=== PATIENT | female | born 1950 | race Caucasian/White ===

== ENCOUNTER 2016-04-30 06:04 | Day surgery (SDC) | payer OTHER, BC ==
[2016-04-30 06:50] VITALS: BMI 33.0
--- NOTE | 2016-04-30 07:18 | HP ---
Admitting History and Physical - Admission History of Present Illness: patient is a 65 y/o female with a past medical history of depression and anxiety , COPD, hypertension, NIDDM, and hyperlipidemia. patient presents for ECT. Patient is poor historian due to anxiety. She has received ECT in the past, her last ECT was 2014 at [facility]. Patient reports a recent hospitalization for pneumonia in early march 2016. She reports finishing a full course of antibiotics and is unable to recall the name. she reports feeling well, and denies any suicidal or homicidal ideation or auditory or visual or auditory hallucination History Source: Patient Limitations to Obtaining History: No Limitations - Past Medical History Cardiovascular: Yes: HTN, Hyperlipdemia Pulmonary: Yes: COPD Psych: Yes: Anxiety, Depression Endocrine: Yes: Diabetes Mellitus - Smoking History Smoking history: Former smoker Have you smoked in the past 12 months: No If you are a former smoker, when did you quit?: 2009 - Alcohol/Substance Use Hx Alcohol Use: No Home Medications - Allergies Allergies/Adverse Reactions: Allergies Allergy/AdvReac Type Severity Reaction Status Date / Time No Known Drug Allergies Allergy Verified 04/30/16 06:56 - Home Medications Home Medications: Ambulatory Orders Alprazolam [Xanax] 0.5 mg PO BID PRN 01/18/15 Aspirin Coated [Ecotrin -] 81 mg PO DAILY 01/18/15 Cholecalciferol (Vitamin D3) [Vitamin D3] 1,000 unit PO DAILY 01/18/15 Fluticasone/Salmeterol [Advair 250-50 Diskus] 1 each IH BID 01/18/15 Lisinopril [Prinivil -] 30 mg PO DAILY 01/18/15 Simvastatin 10 mg PO HS 01/18/15 Venlafaxine HCl ER [Effexor Xr -] 300 mg PO DAILY 01/18/15 Ascorbate Calcium [Vitamin C] 500 mg PO DAILY 04/23/16 Asenapine Maleate [Saphris] 5 mg SL HS 04/23/16 Brexpiprazole [Rexulti] 5 mg PO DAILY 04/23/16 Bupropion HCl [Wellbutrin Xl] 300 mg PO DAILY 04/23/16 Metformin HCl 1,000 mg PO HS 04/23/16 Metformin HCl 500 mg PO DAILY 04/23/16 Tiotropium [place] [Spiriva] 1 inh PO DAILY 04/23/16 Family Disease History - Family Disease History Family History: Unremarkable Review of Systems - Review of Systems Constitutional: reports: No Symptoms Eyes: reports: No Symptoms HENT: reports: No Symptoms Neck: reports: No Symptoms Cardiovascular: reports: No Symptoms Respiratory: reports: No Symptoms Gastrointestinal: reports: No Symptoms Musculoskeletal: reports: No Symptoms Integumentary: reports: No Symptoms Neurological: reports: No Symptoms Hematology/Lymphatic: reports: No Symptoms Psychiatric: reports: Anxiety, Depression Physical Examination Vital Signs: Vital Signs Temperature 97.6 F 04/30/16 06:43 Pulse Rate 78 04/30/16 06:43 Respiratory Rate 22 04/30/16 06:43 Blood Pressure 136/77 04/30/16 06:43 O2 Sat by Pulse Oximetry (%) 96 04/30/16 06:43 Constitutional: Yes: Well Nourished, No Distress, Calm Eyes: Yes: WNL, Conjunctiva Clear, EOM Intact HENT: Yes: WNL, Atraumatic, Normocephalic Neck: Yes: WNL, Supple, Trachea Midline Cardiovascular: Yes: WNL, Regular Rate and Rhythm, S1, S2 Respiratory: Yes: WNL, Regular, CTA Bilaterally Gastrointestinal: Yes: WNL, Normal Bowel Sounds, Soft ...Rectal Exam: Yes: Deferred Renal/: Yes: WNL Extremities: Yes: WNL Edema: No Peripheral Pulses WNL: Yes Peripheral Pulses: Left Radial: 4+, Right Radial: 4+, Left Doralis Pedis: 3+, Right Dorsalis Pedis: 3+, Left Femoral: 3+ Integumentary: Yes: WNL Neurological: Yes: WNL, Alert, Oriented ...Motor Strength: WNL Psychiatric: Yes: WNL, Alert, Oriented, Other (anxious) Labs: reviewed 03/30 Imaging - Results EKG: Image Reviewed, Other (NSR) Assessment/Plan pt is a 65 y/o female that presents for ECT, labs and EKG reviewed pt is low risk for ECT informed consent, risks and benefits to be obtained by Dr Barahona
[2016-04-30] MEDS ORDERED: PROPOFOL 20 ML ONE (07:20)
[2016-04-30] MEDS ORDERED: SUCCINYLCHOLINE CHLORIDE 200 MG/10 ML VIAL ONE (07:20)
[2016-04-30] MEDS ORDERED: KETAMINE HCL 500 MG/10 ML VIAL ONE (08:04)
[2016-04-30 09:10] VITALS: TEMP 98.2
--- NOTE | 2016-04-30 09:10 | EKG ---
Test Reason : Blood Pressure : / mmHG Vent. Rate : 076 BPM Atrial Rate : 076 BPM P-R Int : 136 ms QRS Dur : 088 ms QT Int : 374 ms P-R-T Axes : -22 012 042 degrees QTc Int : 420 ms NORMAL SINUS RHYTHM NORMAL ECG NO PREVIOUS ECGS AVAILABLE Confirmed by DANIELA APPLE MD ([id number]) on 04/30/2016 9:09:49 AM Referred By: Addison Barahona Confirmed By:DANIELA APPLE MD
[2016-04-30] MEDS ORDERED: ACETAMINOPHEN 325 MG TABLET (FP) PO PRN (09:18)
[2016-04-30 10:14] VITALS: BP 142/72; PULSE 88
== END 2016-04-30 10:16 | disposition home or self-care (01) ==
LOC: FECT 06:04
PROVIDERS: ATTEND Psychiatry & Neurology Psychiatry
PROC: GZB4ZZZ Other Electroconvulsive Therapy (ICD-10-PCS; principal; 2016-04-30 08:00)
DX: F33.2 Major depressive disorder, recurrent severe without psychotic features (principal)
CPT/HCPCS: 90870; 93005; 94760

== ENCOUNTER 2016-05-02 05:11 | Day surgery (SDC) | payer OTHER, BC ==
[2016-04-26 08:40] VITALS: BMI 31.4
[2016-05-02] MEDS ORDERED: KETAMINE HCL 500 MG/10 ML VIAL ONE (07:48)
[2016-05-02] MEDS ORDERED: LACTATED RINGERS SOLUTION 1,000 ML IV SCH (08:45)
[2016-05-02 08:57] VITALS: TEMP 98.4
[2016-05-02 09:14] VITALS: BP 145/85; PULSE 87
== END 2016-05-02 09:10 | disposition home or self-care (01) ==
LOC: FECT 05:11
PROVIDERS: ATTEND Psychiatry & Neurology Psychiatry
PROC: GZB4ZZZ Other Electroconvulsive Therapy (ICD-10-PCS; principal; 2016-05-02 08:00)
DX: F33.2 Major depressive disorder, recurrent severe without psychotic features (principal)
CPT/HCPCS: 90870; 94760

== ENCOUNTER 2016-05-04 05:42 | Day surgery (SDC) | payer OTHER, BC ==
[2016-04-30 17:52] VITALS: BMI 33.0
[2016-05-04] MEDS ORDERED: KETAMINE HCL 500 MG/10 ML VIAL ONE (07:49)
[2016-05-04 12:11] VITALS: BP 152/74; PULSE 76; TEMP 98
[2016-05-04] MEDS ORDERED: ONDANSETRON 4 MG/2 ML VIAL IVPUSH PRN (13:08)
[2016-05-04] MEDS ORDERED: LACTATED RINGERS SOLUTION 1,000 ML IV SCH (13:15)
== END 2016-05-04 10:15 | disposition home or self-care (01) ==
LOC: FECT 05:42
PROVIDERS: ATTEND Psychiatry & Neurology Psychiatry
PROC: GZB4ZZZ Other Electroconvulsive Therapy (ICD-10-PCS; principal; 2016-05-04 07:30)
DX: F33.2 Major depressive disorder, recurrent severe without psychotic features (principal)
CPT/HCPCS: 90870; 94760

== ENCOUNTER 2016-05-07 05:37 | Day surgery (SDC) | payer OTHER, BC ==
[2016-05-01 10:52] VITALS: BMI 33.0
[2016-05-07] MEDS ORDERED: KETAMINE HCL 500 MG/10 ML VIAL ONE (07:05)
[2016-05-07 08:17] VITALS: TEMP 98.2
[2016-05-07 08:54] VITALS: BP 141/72; PULSE 91
== END 2016-05-07 08:58 | disposition home or self-care (01) ==
LOC: FECT 05:37
PROVIDERS: ATTEND Psychiatry & Neurology Psychiatry
PROC: GZB4ZZZ Other Electroconvulsive Therapy (ICD-10-PCS; principal; 2016-05-07 07:30)
DX: F33.2 Major depressive disorder, recurrent severe without psychotic features (principal)
CPT/HCPCS: 90870; 94760

== ENCOUNTER 2016-05-09 05:36 | Day surgery (SDC) | payer OTHER, BC ==
[2016-05-07 08:27] VITALS: BMI 33.0
[2016-05-09] MEDS ORDERED: KETAMINE HCL 500 MG/10 ML VIAL ONE (07:03)
[2016-05-09] MEDS ORDERED: LACTATED RINGERS SOLUTION 1,000 ML IV SCH (08:00)
[2016-05-09 08:10] VITALS: BP 133/77; PULSE 78; TEMP 98.8
== END 2016-05-09 08:20 | disposition home or self-care (01) ==
LOC: FECT 05:36
PROVIDERS: ATTEND Psychiatry & Neurology Psychiatry
PROC: GZB4ZZZ Other Electroconvulsive Therapy (ICD-10-PCS; principal; 2016-05-09 07:15)
DX: F33.2 Major depressive disorder, recurrent severe without psychotic features (principal)
CPT/HCPCS: 90870; 94760

== ENCOUNTER 2016-05-11 05:39 | Day surgery (SDC) | payer OTHER, BC ==
[2016-05-08 11:05] VITALS: BMI 29.0
[2016-05-11] MEDS ORDERED: KETAMINE HCL 500 MG/10 ML VIAL ONE (07:15)
[2016-05-11 08:14] VITALS: TEMP 98.3
[2016-05-11 09:02] VITALS: BP 146/82; PULSE 92
== END 2016-05-11 08:45 | disposition home or self-care (01) ==
LOC: FECT 05:39
PROVIDERS: ATTEND Psychiatry & Neurology Psychiatry
PROC: GZB4ZZZ Other Electroconvulsive Therapy (ICD-10-PCS; principal; 2016-05-11 07:15)
DX: F33.2 Major depressive disorder, recurrent severe without psychotic features (principal)
CPT/HCPCS: 90870; 94760

== ENCOUNTER 2016-05-14 05:35 | Day surgery (SDC) | payer OTHER, BC ==
[2016-05-08 11:10] VITALS: BMI 29.0
[2016-05-14 06:13] VITALS: TEMP 98
[2016-05-14] MEDS ORDERED: KETAMINE HCL 500 MG/10 ML VIAL ONE (07:02)
[2016-05-14 08:23] VITALS: BP 126/62; PULSE 80
== END 2016-05-14 08:20 | disposition home or self-care (01) ==
LOC: FECT 05:35
PROVIDERS: ATTEND Psychiatry & Neurology Psychiatry
PROC: GZB4ZZZ Other Electroconvulsive Therapy (ICD-10-PCS; principal; 2016-05-14 07:00)
DX: F33.2 Major depressive disorder, recurrent severe without psychotic features (principal)
CPT/HCPCS: 90870; 94760

== ENCOUNTER 2016-05-16 05:38 | Day surgery (SDC) | payer OTHER, BC ==
[2016-05-08 11:13] VITALS: BMI 29.0
[2016-05-16] MEDS ORDERED: KETAMINE HCL 500 MG/10 ML VIAL ONE (07:01)
[2016-05-16] MEDS ORDERED: ONDANSETRON 4 MG/2 ML VIAL IVPUSH PRN (07:20)
[2016-05-16 07:57] VITALS: TEMP 98.2
[2016-05-16 08:49] VITALS: BP 148/72; PULSE 80
== END 2016-05-16 08:35 | disposition home or self-care (01) ==
LOC: FECT 05:38
PROVIDERS: ATTEND Psychiatry & Neurology Psychiatry
PROC: GZB4ZZZ Other Electroconvulsive Therapy (ICD-10-PCS; principal; 2016-05-16 07:00)
DX: F33.2 Major depressive disorder, recurrent severe without psychotic features (principal)
CPT/HCPCS: 90870; 94760

== ENCOUNTER 2016-05-18 05:36 | Day surgery (SDC) | payer OTHER, BC ==
[2016-05-08 11:17] VITALS: BMI 29.0
[2016-05-18 07:44] VITALS: TEMP 99.1
[2016-05-18] MEDS ORDERED: LACTATED RINGERS SOLUTION 1,000 ML IV SCH (08:45)
[2016-05-18 08:52] VITALS: BP 128/71; PULSE 76
[2016-05-18] MEDS ORDERED: ONDANSETRON 4 MG/2 ML VIAL IVPUSH PRN (09:05)
== END 2016-05-18 08:54 | disposition home or self-care (01) ==
LOC: FECT 05:36
PROVIDERS: ATTEND Psychiatry & Neurology Psychiatry
PROC: GZB4ZZZ Other Electroconvulsive Therapy (ICD-10-PCS; principal; 2016-05-18 07:00)
DX: F33.2 Major depressive disorder, recurrent severe without psychotic features (principal)
CPT/HCPCS: 90870; 94760

== ENCOUNTER 2016-05-21 05:36 | Day surgery (SDC) | payer OTHER, BC ==
[2016-05-16 11:24] VITALS: BMI 29.0
[2016-05-21] MEDS ORDERED: LACTATED RINGERS SOLUTION 1,000 ML IV SCH (07:30)
[2016-05-21 08:06] VITALS: TEMP 97.8
[2016-05-21 08:32] VITALS: BP 130/72; PULSE 71
== END 2016-05-21 08:30 | disposition home or self-care (01) ==
LOC: FECT 05:36
PROVIDERS: ATTEND Psychiatry & Neurology Psychiatry
PROC: GZB4ZZZ Other Electroconvulsive Therapy (ICD-10-PCS; principal; 2016-05-21 07:00)
DX: F33.2 Major depressive disorder, recurrent severe without psychotic features (principal)
CPT/HCPCS: 90870; 94760

== ENCOUNTER 2016-05-23 05:34 | Day surgery (SDC) | payer OTHER, BC ==
[2016-05-18 10:15] VITALS: BMI 29.0
[2016-05-23] MEDS ORDERED: KETAMINE HCL 500 MG/10 ML VIAL ONE (07:08)
[2016-05-23 09:01] VITALS: TEMP 97.9
[2016-05-23 09:10] VITALS: BP 130/56; PULSE 88
== END 2016-05-23 08:30 | disposition home or self-care (01) ==
LOC: FECT 05:34
PROVIDERS: ATTEND Psychiatry & Neurology Psychiatry
PROC: GZB4ZZZ Other Electroconvulsive Therapy (ICD-10-PCS; principal; 2016-05-23 07:00)
DX: F33.2 Major depressive disorder, recurrent severe without psychotic features (principal)
CPT/HCPCS: 90870; 94760

== ENCOUNTER 2016-05-28 05:39 | Day surgery (SDC) | payer OTHER, BC ==
[2016-05-21 12:02] VITALS: BMI 29.0
[2016-05-28] MEDS ORDERED: ONDANSETRON 4 MG/2 ML VIAL IVPUSH PRN (06:14)
[2016-05-28] MEDS ORDERED: KETAMINE HCL 500 MG/10 ML VIAL ONE (07:49)
[2016-05-28 09:15] VITALS: TEMP 98.2
[2016-05-28 10:26] VITALS: BP 122/58; PULSE 76
== END 2016-05-28 09:45 | disposition home or self-care (01) ==
LOC: FECT 05:39
PROVIDERS: ATTEND Psychiatry & Neurology Psychiatry
PROC: GZB4ZZZ Other Electroconvulsive Therapy (ICD-10-PCS; principal; 2016-05-28 07:00)
DX: F33.2 Major depressive disorder, recurrent severe without psychotic features (principal)
CPT/HCPCS: 90870; 94760

== ENCOUNTER 2016-06-05 05:40 | Day surgery (SDC) | payer OTHER, BC ==
[2016-05-28 17:02] VITALS: BMI 29.0
[2016-06-05 06:33] VITALS: TEMP 98.1
--- NOTE | 2016-06-05 06:57 | HP ---
Admitting History and Physical - Admission History of Present Illness: patient is a 65 y/o female, with a past medical history of COPD, NIDDM, hypertension, hyperlipidemiea, anxiety and depression. Patient presents for ECT , her last ECT was 05/28/16. She report feeling well and reports an improvement in depressive symptoms since starting ECT. She denies any suicidal or homicidal ideation. She reports her wellbutrin dose was lowered and she is was placed on abilify. She reports an improvement in depressive symptoms since the medication change. - Past Medical History Cardiovascular: Yes: HTN, Hyperlipdemia Pulmonary: Yes: COPD Psych: Yes: Anxiety, Depression Endocrine: Yes: Diabetes Mellitus - Smoking History Smoking history: Former smoker Have you smoked in the past 12 months: No If you are a former smoker, when did you quit?: 2009 - Alcohol/Substance Use Hx Alcohol Use: No History of Substance Use: reports: None - Social History Usual Living Arrangement: Yes: Alone History of Recent Travel: No Home Medications - Allergies Allergies/Adverse Reactions: Allergies Allergy/AdvReac Type Severity Reaction Status Date / Time No Known Drug Allergies Allergy Verified 05/23/16 06:23 - Home Medications Home Medications: Ambulatory Orders Aspirin Coated [Ecotrin -] 81 mg PO DAILY 01/18/15 Cholecalciferol (Vitamin D3) [Vitamin D3] 1,000 unit PO DAILY 01/18/15 Fluticasone/Salmeterol [Advair 250-50 Diskus] 1 each IH BID 01/18/15 Lisinopril [Prinivil -] 30 mg PO DAILY 01/18/15 Simvastatin 10 mg PO HS 01/18/15 Venlafaxine HCl ER [Effexor Xr -] 300 mg PO DAILY 01/18/15 Ascorbate Calcium [Vitamin C] 500 mg PO DAILY 04/23/16 Bupropion HCl [Wellbutrin Xl] 150 mg PO DAILY 04/23/16 Metformin HCl 1,000 mg PO HS 04/23/16 Metformin HCl 500 mg PO DAILY 04/23/16 Tiotropium [place] [Spiriva] 1 inh PO DAILY 04/23/16 Clonazepam [Klonopin] 1 mg PO BID 05/11/16 Aripiprazole [Abilify] 10 mg PO DAILY 06/05/16 Family Disease History - Family Disease History Family History: Unremarkable Review of Systems - Review of Systems Constitutional: reports: No Symptoms Eyes: reports: No Symptoms HENT: reports: No Symptoms Neck: reports: No Symptoms Cardiovascular: reports: No Symptoms Respiratory: reports: No Symptoms Gastrointestinal: reports: No Symptoms Genitourinary: reports: No Symptoms Musculoskeletal: reports: No Symptoms Integumentary: reports: No Symptoms Neurological: reports: No Symptoms Endocrine: reports: No Symptoms Hematology/Lymphatic: reports: No Symptoms Psychiatric: reports: No Symptoms Physical Examination Vital Signs: Vital Signs Temperature 98.1 F 06/05/16 06:29 Pulse Rate 74 06/05/16 06:29 Respiratory Rate 16 06/05/16 06:29 Blood Pressure 112/68 06/05/16 06:29 O2 Sat by Pulse Oximetry (%) 94 L 06/05/16 06:29 Constitutional: Yes: Well Nourished, No Distress, Calm Eyes: Yes: WNL, Conjunctiva Clear, EOM Intact HENT: Yes: WNL, Atraumatic, Normocephalic Neck: Yes: WNL, Supple, Trachea Midline Cardiovascular: Yes: WNL, Regular Rate and Rhythm, S1, S2 Respiratory: Yes: WNL, Regular, CTA Bilaterally Gastrointestinal: Yes: WNL, Normal Bowel Sounds, Soft Renal/: Yes: WNL Breast(s): Yes: WNL Musculoskeletal: Yes: WNL Extremities: Yes: WNL Edema: No Peripheral Pulses WNL: Yes Peripheral Pulses: Left Radial: 4+, Right Radial: 4+, Left Doralis Pedis: 3+, Right Dorsalis Pedis: 3+, Left Femoral: 3+, Right Femoral: 3+ Integumentary: Yes: WNL Neurological: Yes: WNL, Alert, Oriented ...Motor Strength: WNL Psychiatric: Yes: WNL, Alert, Oriented Labs: reviewed 03/30 Imaging - Results EKG: Image Reviewed, Other (nsr no ischemic changes) Assessment/Plan pt is a 65 y/o female that presents for ect, she has received ect in the past and denies any adverse reaction to anesthesia. patient's labs and ekg reviewed low risk for ect informed consent, risks/benefits to be obtained by Dr Barahona
[2016-06-05] MEDS ORDERED: KETAMINE HCL 500 MG/10 ML VIAL ONE (07:46)
[2016-06-05 09:11] VITALS: BP 125/66; PULSE 76
== END 2016-06-05 09:10 | disposition home or self-care (01) ==
LOC: FECT 05:40
PROVIDERS: ATTEND Psychiatry & Neurology Psychiatry
PROC: GZB4ZZZ Other Electroconvulsive Therapy (ICD-10-PCS; principal; 2016-06-05 07:45)
DX: F33.2 Major depressive disorder, recurrent severe without psychotic features (principal)
CPT/HCPCS: 90870; 94760

== ENCOUNTER 2016-06-12 05:45 | Day surgery (SDC) | payer OTHER, BC ==
[2016-06-05 10:28] VITALS: BMI 29.0
[2016-06-12] MEDS ORDERED: KETAMINE HCL 500 MG/10 ML VIAL ONE (07:09)
[2016-06-12 08:09] VITALS: TEMP 98.1
[2016-06-12 08:20] VITALS: BP 125/70; PULSE 79
[2016-06-12] MEDS ORDERED: LACTATED RINGERS SOLUTION 1,000 ML IV SCH (08:30)
[2016-06-12] MEDS ORDERED: ACETAMINOPHEN 325 MG TABLET (FP) ONE (08:40)
[2016-06-12] MEDS ORDERED: ONDANSETRON 4 MG/2 ML VIAL IVPUSH PRN (08:42)
[2016-06-12] MEDS ORDERED: ACETAMINOPHEN 325 MG TABLET (FP) PO ONE (10:31)
== END 2016-06-12 08:30 | disposition home or self-care (01) ==
LOC: FECT 05:45
PROVIDERS: ATTEND Psychiatry & Neurology Psychiatry
PROC: GZB4ZZZ Other Electroconvulsive Therapy (ICD-10-PCS; principal; 2016-06-12 07:30)
DX: F33.2 Major depressive disorder, recurrent severe without psychotic features (principal)
CPT/HCPCS: 90870; 94760

== ENCOUNTER 2016-06-19 05:36 | Day surgery (SDC) | payer OTHER, BC ==
[2016-06-13 17:53] VITALS: BMI 29.0
[2016-06-19] MEDS ORDERED: KETAMINE HCL 500 MG/10 ML VIAL ONE (07:47)
[2016-06-19] MEDS ORDERED: ONDANSETRON 4 MG/2 ML VIAL IVPUSH PRN (08:38)
[2016-06-19] MEDS ORDERED: LACTATED RINGERS SOLUTION 1,000 ML IV SCH (08:45)
[2016-06-19 09:10] VITALS: TEMP 97.9
[2016-06-19 09:11] VITALS: BP 120/77; PULSE 81
== END 2016-06-19 09:15 | disposition home or self-care (01) ==
LOC: FECT 05:36
PROVIDERS: ATTEND Psychiatry & Neurology Psychiatry
PROC: GZB4ZZZ Other Electroconvulsive Therapy (ICD-10-PCS; principal; 2016-06-19 07:30)
DX: F33.2 Major depressive disorder, recurrent severe without psychotic features (principal)
CPT/HCPCS: 90870; 94760

== ENCOUNTER 2016-06-28 05:42 | Day surgery (SDC) | payer OTHER, BC ==
[2016-06-27 09:39] VITALS: BMI 29.0
[2016-06-28] MEDS ORDERED: KETAMINE HCL 500 MG/10 ML VIAL ONE (07:26)
[2016-06-28 07:58] VITALS: TEMP 98.1
[2016-06-28] MEDS ORDERED: ONDANSETRON 4 MG/2 ML VIAL IVPUSH PRN (08:48)
[2016-06-28 08:54] VITALS: BP 102/65; PULSE 73
== END 2016-06-28 09:00 | disposition home or self-care (01) ==
LOC: FECT 05:42
PROVIDERS: ATTEND Psychiatry & Neurology Psychiatry
PROC: GZB4ZZZ Other Electroconvulsive Therapy (ICD-10-PCS; principal; 2016-06-28 07:45)
DX: F33.2 Major depressive disorder, recurrent severe without psychotic features (principal)
CPT/HCPCS: 90870; 94760

== ENCOUNTER 2016-07-05 05:40 | Day surgery (SDC) | payer OTHER, BC ==
[2016-06-29 10:10] VITALS: BMI 29.0
--- NOTE | 2016-07-05 06:56 | HP ---
Admitting History and Physical - Admission History of Present Illness: patient is a 65 y/o female with a past medical history of depression, anxiety, hypertension, hyperlipidemia, copd, and niddm. patient presents for ECt her last ECT was 06/28/16. patient reports feeling well and reports an improvement in depressive symptoms since starting ECT. She reports decreasing her klonopin to 0.5mg daily. patient denies any suicidal or homicidal ideation. patient denies any visual or auditory hallucination. patient denies any recent illness or hospitalizations. - Past Medical History Cardiovascular: Yes: HTN, Hyperlipdemia Pulmonary: Yes: COPD Psych: Yes: Anxiety, Depression Endocrine: Yes: Diabetes Mellitus - Smoking History Smoking history: Former smoker Have you smoked in the past 12 months: No If you are a former smoker, when did you quit?: 2009 - Alcohol/Substance Use Hx Alcohol Use: No History of Substance Use: reports: None - Social History History of Recent Travel: No Home Medications - Allergies Allergies/Adverse Reactions: Allergies Allergy/AdvReac Type Severity Reaction Status Date / Time No Known Drug Allergies Allergy Verified 05/23/16 06:23 - Home Medications Home Medications: Ambulatory Orders Aspirin Coated [Ecotrin -] 81 mg PO DAILY 01/18/15 Cholecalciferol (Vitamin D3) [Vitamin D3] 1,000 unit PO DAILY 01/18/15 Fluticasone/Salmeterol [Advair 250-50 Diskus] 1 each IH BID 01/18/15 Lisinopril [Prinivil -] 30 mg PO DAILY 01/18/15 Simvastatin 10 mg PO HS 01/18/15 Venlafaxine HCl ER [Effexor Xr -] 300 mg PO DAILY 01/18/15 Ascorbate Calcium [Vitamin C] 500 mg PO DAILY 04/23/16 Bupropion HCl [Wellbutrin Xl] 150 mg PO DAILY 04/23/16 Metformin HCl 1,000 mg PO HS 04/23/16 Metformin HCl 500 mg PO DAILY 04/23/16 Tiotropium [place] [Spiriva] 1 inh PO DAILY 04/23/16 Clonazepam [Klonopin] 1 mg PO HS 05/11/16 Aripiprazole [Abilify] 10 mg PO DAILY 06/05/16 Clonazepam [Klonopin -] 0.5 mg PO DAILY 06/19/16 Family Disease History - Family Disease History Family History: Unremarkable Review of Systems - Review of Systems Constitutional: reports: No Symptoms Eyes: reports: No Symptoms HENT: reports: No Symptoms Neck: reports: No Symptoms Cardiovascular: reports: No Symptoms Respiratory: reports: No Symptoms Gastrointestinal: reports: No Symptoms Genitourinary: reports: No Symptoms Breasts: reports: No Symptoms Reported Musculoskeletal: reports: No Symptoms Integumentary: reports: No Symptoms Neurological: reports: No Symptoms Endocrine: reports: No Symptoms Hematology/Lymphatic: reports: No Symptoms Psychiatric: reports: No Symptoms Physical Examination Constitutional: Yes: Well Nourished, No Distress, Calm Eyes: Yes: WNL, Conjunctiva Clear, EOM Intact HENT: Yes: WNL, Atraumatic, Normocephalic Neck: Yes: WNL, Supple, Trachea Midline Cardiovascular: Yes: WNL, Regular Rate and Rhythm, S1, S2 Respiratory: Yes: WNL, Regular, CTA Bilaterally Gastrointestinal: Yes: WNL, Normal Bowel Sounds, Soft ...Rectal Exam: Yes: Deferred Renal/: Yes: WNL Musculoskeletal: Yes: WNL Extremities: Yes: WNL Edema: No Peripheral Pulses WNL: Yes Peripheral Pulses: Left Radial: 4+, Right Radial: 4+, Left Doralis Pedis: 3+, Right Dorsalis Pedis: 3+, Left Femoral: 3+, Right Femoral: 3+ Integumentary: Yes: WNL Neurological: Yes: WNL, Alert, Oriented ...Motor Strength: WNL Psychiatric: Yes: WNL, Alert, Oriented Labs: reviewed 03/30 Imaging - Results EKG: Report Reviewed, Image Reviewed, Other (nsr, normal axis) Assessment/Plan pt is a 65 y/o female, that presents for ECT, pt has received ect in the past and denies any adverse reaction to anesthesia. labs and ekg reviewed pt is low risk for ECT informed consent, risks/benefits to be obtained by Dr Barahona
[2016-07-05] MEDS ORDERED: KETAMINE HCL 500 MG/10 ML VIAL ONE (07:44)
[2016-07-05 08:00] VITALS: TEMP 98
[2016-07-05 09:21] VITALS: BP 106/64; PULSE 77
== END 2016-07-05 09:15 | disposition home or self-care (01) ==
LOC: FECT 05:40
PROVIDERS: ATTEND Psychiatry & Neurology Psychiatry
PROC: GZB4ZZZ Other Electroconvulsive Therapy (ICD-10-PCS; principal; 2016-07-05 07:30)
DX: F33.2 Major depressive disorder, recurrent severe without psychotic features (principal)
CPT/HCPCS: 90870; 94760